=== PATIENT | male | born 1945 | race Caucasian/White ===

== ENCOUNTER 2019-03-14 08:17 | Emergency (ER) | payer MEDICARE, OTHER ==
[~2019-03-14] VITALS: Ht 180.3 cm; Wt 88.6 kg
[~2019-03-14 08:17] MED LIST: ALLEGRA 60MG TA60 MG PO; ALLEGRA30 MG PO; AMARYL PO; ASPIRIN 32325 MG/TAB PO; ASPIRIN E.C. 8181 MG PO; CENTRUM SILVER1 TA3 PO; CLOPIDOGREL75 MG PO; COREG 6.256.25 MG/TA PO; COZAAR 25MG25 MG/TAB PO; COZAAR 50MG50 MG/TAB PO; CRESTOR 10MG10 MG PO; CRESTOR10 MG PO; CRESTOR20 MG PO; FLOMAX 0.40.4 MG/CAP PO; FORT1000TA PO; LANTUS100 U/ML SQ; LISINOPRIL20 MG PO; LOVAZA1 GM PO; METFORMIN HCL1000 MG PO; NITROQUICK0.4 MG SL; NITROSTAT0.4 MG/TAB SL; PRILOSEC 20MG20 MG PO; RANITIDINE150 MG PO; TYLENOL 325MG325 MG PO; VITAMIN D32000 IU PO
[2019-03-14 08:20] VITALS: TEMP 98
[2019-03-14 08:51] LABS: HEMATOCRIT 47.5 % (42.0-52.0); HEMOGLOBIN 15.7 g/dl (13.5-18.0); MEAN CELL VOLUME 88 fl (80.0-100.0); MEAN CORPUSCULAR HEMOGLOBIN 29 pg (27.0-31.0); MEAN CORPUSCULAR HGB CONC 33 g/dl (33.0-37.0); MEAN PLATELET VOLUME 9.4 fl (7.4-10.4); PLATELET COUNT 260 K/mm3 (130-400); RED BLOOD COUNT 5.43 M/mm3 (4.20-5.60); REDCELL DISTRIBUTION WIDTH-CV 12.1 % (11.5-14.5)
[2019-03-14 08:53] LABS: INR 0.9 (0.8-3.0); PROTHROMBIN TIME 10.6 SECONDS (9.7-12.8)
[2019-03-14 08:55] LABS: PARTIAL THROMBOPLASTIN TIME 32.6 SECONDS (26.0-37.0)
[2019-03-14 09:15] LABS: ALBUMIN 4.5 gm/dL (3.5-5.0); BILIRUBIN,TOTAL 1.7 mg/dL (0.0-1.0); CREATININE, serum 1.08 (0.66-1.25); MAGNESIUM 1.4 mg/dL (1.6-2.3); POTASSIUM 4.2 mmol/L (3.4-5.0); TOTAL PROTEIN 7.8 gm/dL (6.4-8.2)
[2019-03-14] MEDS ORDERED: GLUCOPHAGE XR500 M1 PO (09:24)
[2019-03-14] MEDS ORDERED: ZANTAC 150MG T150 MG PO (09:25)
[2019-03-14 09:27] LABS: TROPONIN-I 0.047 ng/mL (0.000-0.035)
[2019-03-14] MEDS ORDERED: AMARYL 2MG T2 MG/TAB PO (09:28)
[2019-03-14] MEDS ORDERED: MASON NATURAL1000 MG PO (09:28)
[2019-03-14 09:32] LABS: COLLECTION METHOD CLEAN CATCH
[2019-03-14 09:37] LABS: MUCOUS Present /lpf; PH 5 (5-8); SQUAMOUS EPITHELIAL None Seen /hpf; URINE APPEARANCE Clear; URINE BACTERIA None Seen /hpf; URINE BILIRUBIN Negative (NEGATIVE); URINE BLOOD Negative (NEGATIVE); URINE COLOR Yellow; URINE GLUCOSE Negative (NEGATIVE); URINE KETONE Trace (NEGATIVE); URINE LEUKOCYTE ESTERASE Negative (NEGATIVE); URINE NITRATE Negative (NEGATIVE); URINE PROTEIN(semi-quant) Negative (NEGATIVE); URINE RBC 0-2 /hpf; URINE UROBILINOGEN Negative (NEGATIVE)
[2019-03-14 09:38] LABS: EOSINOPHIL 2 % (0-4); LYMPHOCYTE 12 % (20.0-51.0); NEUTROPHILS 75 % (42.0-75.2)
[2019-03-14 09:39] LABS: PLATELET ESTIMATE NORMAL (NORMAL)
[2019-03-14] MEDS ORDERED: LEVAQUIN 750MG750 M1 PO ×3 (14:21→15:26)
[2019-03-14 16:00] VITALS: BP 136/73; PULSE 83
== END 2019-03-14 16:02 | disposition left against medical advice (07) ==
LOC: COL.ER 08:17
PROVIDERS: Emergency Medicine
DX: R79.89 Other specified abnormal findings of blood chemistry (principal); E11.9 Type 2 diabetes mellitus without complications; E78.5 Hyperlipidemia, unspecified; Z95.1 Presence of aortocoronary bypass graft; Z95.9 Presence of cardiac and vascular implant and graft, unspecified; Z79.82 Long term (current) use of aspirin; Z79.4 Long term (current) use of insulin
CPT/HCPCS: J1170; J1956; J7030; Q9967

== ENCOUNTER 2021-05-26 11:56 | Emergency (ER) | payer MEDICARE, OTHER ==
[~2021-05-26] VITALS: Ht 180.3 cm; Wt 81.8 kg
[~2021-05-26 11:56] MED LIST changes: +AMARYL 2MG T2 MG/TAB PO; +GLUCOPHAGE XR500 M1 PO; +LEVAQUIN 750MG750 M1 PO; +MASON NATURAL1000 MG PO; +ZANTAC 150MG T150 MG PO
[2021-05-26 12:06] VITALS: TEMP 97.7
[2021-05-26 12:28] LABS: BASO # 0.1 K/mm3 (0.0-0.2); BASO % 0.5 % (0.0-2.0); EOS # 0.2 K/mm3 (0.0-0.7); EOS % 2.3 % (0.0-4.0); GRAN # 7.6 K/mm3 (1.4-6.5); GRAN % 71.6 % (42.2-75.2); HEMATOCRIT 39.8 % (42.0-52.0); LYMPH # 1.8 K/mm3 (1.2-3.4); LYMPH % 16.5 % (20.0-51.0); MEAN CELL VOLUME 88 fl (80.0-100.0); MEAN CORPUSCULAR HEMOGLOBIN 29 pg (27-31); MEAN CORPUSCULAR HGB CONC 33 g/dl (33.0-37.0); MEAN PLATELET VOLUME 8.8 fl (7.4-10.4); MONO # 0.9 K/mm3 (0.1-0.6); MONO % 8.7 % (1.7-9.3); PLATELET COUNT 690 K/mm3 (130-400); RED BLOOD COUNT 4.54 M/mm3 (4.20-5.60); REDCELL DISTRIBUTION WIDTH-CV 12.7 % (11.5-14.5)
[2021-05-26 12:46] LABS: ALANINE AMINOTRANSFERASE 29 U/L (0-55); ALBUMIN 2.5 gm/dL (3.4-4.8); ALKALINE PHOSPHATASE 83 U/L (40-150); ANION GAP 10 mmol/L (7-16); AST,SGOT 24 U/L (5-34); BILIRUBIN,TOTAL 0.6 mg/dL (0.2-1.2); BLOOD UREA NITROGEN 20 mg/dL (8-26); CALCIUM 9.3 mg/dL (8.4-10.2); CARBON DIOXIDE 26 mmol/L (23-31); CHLORIDE 101 mmol/L (98-107); CREATININE, serum 1.37 mg/dL (0.72-1.25); GLUCOSE 289 mg/dL (70-99); POTASSIUM 4.2 mmol/L (3.5-4.5); SODIUM 137 mmol/L (136-145); TOTAL PROTEIN 7.4 gm/dL (6.2-8.1)
[2021-05-26 12:52] LABS: TROPONIN-I < 0.010 ng/mL (0.00-0.033)
[2021-05-26] MEDS ORDERED: AMOXICILLIN 8751 TAB PO (15:20)
[2021-05-26 15:34] VITALS: BP 114/73; PULSE 78
== END 2021-05-26 15:46 | disposition home or self-care (01) ==
LOC: COL.ER 11:56
PROVIDERS: Student in an Organized Health Care Education/Training Program
DX: J18.1 Lobar pneumonia, unspecified organism (principal); Z86.16 Personal history of COVID-19
CPT/HCPCS: J0696; J7030